=== PATIENT | male | born 1995 | race Asian ===

== ENCOUNTER 2017-02-28 03:59 | Emergency (ER) | payer BC ==
[~2017-02-28] VITALS: Ht 167.6 cm; Wt 87.0 kg
[2017-02-28 04:01] VITALS: BP 160/97; PULSE 82; RESP 16; TEMP 98.3; O2SAT 99
[2017-02-28] MEDS ORDERED: FAMOTIDINE 20 MG/2 ML VIAL IV PUSH ONE (04:15)
[2017-02-28] MEDS ORDERED: SODIUM CHLORIDE 0.9% FLUSH 10 ML FLUSH IV FLUSH PRN (04:15)
[2017-02-28] MEDS ORDERED: methylPREDNISolone SOD SUCC 125 MG/2 ML VIAL IVP ONE (04:15)
[2017-02-28] MEDS ORDERED: EPINEPHrine HCL (1:1000) 1 MG/ML VIAL IM ONE (04:15)
[2017-02-28] MEDS ORDERED: diphenhydrAMINE HCL 50 MG/ML VIAL IVP ONE (04:15)
--- NOTE | 2017-02-28 04:30 | PD ---
HPI Chief Complaint: Allergic/Adverse Reaction Time Seen by Provider: 04:26 Travel History International Travel<30 days: No Contact w/Intl Traveler<30days: No Traveled to known affect area: No History of Present Illness HPI 21-year-old male presents to emergency department with complains of lip swelling and hives this evening. He states that he has had problems with allergic reactions in the past he has plans to see an vaccinator. He states that he had gone to bed this evening but woke up with pruritus and swelling. He comes in for evaluation. He denies headache glossal edema. No shortness of breath or wheezing. No difficulty swallowing. Symptoms are moderate. The patient is concerned that this may worsen presenting him to the ER tonight. The patient cannot recall any causative agent, exposure, change in his environment or new chemicals. PFSH Past Medical History Medical History: Denies Significant Hx Diminished Hearing: No Tetanus Vaccination: < 5 Years Influenza Vaccination: No Past Surgical History Surgical History: No Previous Surgery Social History Alcohol Use: No Tobacco Use: No Substance Use: No Allergies-Medications (Allergen,Severity, Reaction): Coded Allergies: No Known Allergies (Unverified , 02/28/17) Reported Meds & Prescriptions Reported Meds & Active Scripts Active Zantac (Ranitidine HCl) 300 Mg Tab 300 Mg PO DAILY Deltasone (Prednisone) 20 Mg Tab 20 Mg PO TID Epinephrine Inj (Epinephrine) 0.3 Mg/0.3 Ml Pfpen 0.3 Mg IM ONCE PRN Review of Systems Except as stated in HPI: all other systems reviewed are Neg Physical Exam Narrative GENERAL: Well-developed, well-nourished in no apparent distress. Nontoxic appearing. HEAD: Normocephalic, patient has swelling of the left upper lip EYES: Pupils equal round and reactive. Extraocular motions intact. No scleral icterus. No injection or drainage. ENT: Nose clear. Throat without erythema, tonsillar hypertrophy or exudate. Uvula midline. Airway patent. NECK: Trachea midline. Supple, nontender, moves head freely. No central bony tenderness or spasm. CARDIOVASCULAR: Regular rate and rhythm without murmurs, gallops, or rubs. RESPIRATORY: Clear to auscultation. Breath sounds equal bilaterally. No wheezes , rales, or rhonchi. GASTROINTESTINAL: Abdomen soft, non-tender, nondistended. No hepato-splenomegaly , or palpable masses. No guarding. EXTREMITIES: No clubbing, cyanosis, or edema. No joint tenderness. BACK: Nontender without deformity. No flank tenderness. NEUROLOGICAL: Awake, alert and oriented x 3 .Cranial nerves grossly intact. Motor and sensory grossly within normal limits. Normal speech. Skin: There is some swelling of the left upper lip. The patient has scattered patches of hives into plaques. These are predominantly on the trunk but there are several areas on the upper or lower extremities. Data Data Last Documented VS Vital Signs Date Time Temp Pulse Resp B/P Pulse Ox O2 Delivery O2 Flow Rate FiO2 02/28/17 04:06 16 02/28/17 04:01 98.3 82 160/97 99 Room Air Orders Iv Access Insert/Monitor (02/28/17 04:15) Diphenhydramine Inj (Benadryl Inj) (02/28/17 04:15) Methylprednisolone So Succ Inj (Solumedr (02/28/17 04:15) Famotidine Inj (Pepcid Inj) (02/28/17 04:15) Sodium Chloride 0.9% Flush (Ns Flush) (02/28/17 04:15) Epinephrine (1:1000) Inj (Adrenalin (1:1 (02/28/17 04:15) Ondansetron Inj (Zofran Inj) (02/28/17 04:42) Ondansetron Inj (Zofran Inj) (02/28/17 05:00) MDM Medical Decision Making Medical Screen Exam Complete: Yes Emergency Medical Condition: Yes Medical Record Reviewed: Yes Differential Diagnosis Differential diagnosis: Acute allergic reaction, angioedema, contact dermatitis , cellulitis Narrative Course IV access is obtained. Patient's given epinephrine 0.3 mL IM, IV Solu-Medrol 125 mg IV Benadryl 50 mg, IV Pepcid 20 mg, Zofran 4 mg IV. The patient has had significant improvement of his itching and hives. He has had slow improvement of his left upper lip swelling. The patient will be discharged on Zantac, prednisone, Benadryl as well as a EpiPen. This is acute allergic reaction Diagnosis Primary Impression: Acute allergic reaction Qualified Code: T78.40XA - Acute allergic reaction, initial encounter Patient Instructions: General Instructions Additional Instructions: Rest. Medications as directed. 50 mg of Benadryl every 4-6 hours for the next few days. Recheck with a primary care doctor in 3-5 days. Follow-up with your vaccinator as scheduled. Return to the ER if any problems. Med/Other Pt SpecificInfo: Prescription(s) given Scripts Ranitidine (Zantac)300 Mg [id number] Mg PO DAILY #10 TAB Prov:Azul Henderson MD 02/28/17 Prednisone (Deltasone)20 Mg Tab20 Mg PO TID #15 TAB Prov:Azul Henderson MD 02/28/17 Epinephrine Inj 0.3 Mg/0.3 Ml Pfpen0.3 Mg IM ONCE PRN (ALLERGIC REACTION) #1 PEN Ref 0 Prov:Azul Henderson MD 02/28/17 Disposition: 01 DISCHARGE HOME Condition: Stable George Wadsworth Feb 28, 2017 04:30
[2017-02-28] MEDS ORDERED: ONDANSETRON HCL 4 MG/2 ML VIAL ONE (04:42)
[2017-02-28 05:00] VITALS: BP 158/86; PULSE 114; RESP 16; O2SAT 99
[2017-02-28] MEDS ORDERED: ONDANSETRON HCL 4 MG/2 ML VIAL IV PUSH ONE (05:00)
[2017-02-28] MEDS ORDERED: ZANT300T PO (05:02)
[2017-02-28] MEDS ORDERED: EPIN1INJ17 IM (05:02)
[2017-02-28] MEDS ORDERED: PRED-503 PO (05:02)
== END 2017-02-28 06:26 | disposition home or self-care (01) ==
LOC: NEPK 03:59
DX: T78.40XA Allergy, unspecified, initial encounter (principal); L50.9 Urticaria, unspecified
CPT/HCPCS: 96372; 96374; 96375; 99283; J0171; J1200; J2405; J2930

== ENCOUNTER 2017-03-08 01:00 | Emergency (ER) | payer BC ==
[~2017-03-08] VITALS: Ht 170.2 cm; Wt 84.0 kg
[~2017-03-08 01:00] MED LIST: EPIN1INJ17 IM; PRED-503 PO; ZANT300T PO
[2017-03-08 01:02] VITALS: BP 164/101; PULSE 115; RESP 16; TEMP 100.1; O2SAT 98
[2017-03-08 01:19] VITALS: O2SAT 100
--- NOTE | 2017-03-08 01:26 | PD ---
HPI Chief Complaint: Allergic/Adverse Reaction Time Seen by Provider: 01:11 Travel History International Travel<30 days: No Contact w/Intl Traveler<30days: No Traveled to known affect area: No History of Present Illness HPI 41-year-old male complains of itching rash on the arms and chest and throat tightness. Patient states the symptoms started about several hours prior coming to the emergency room. Patient was seen in emergency room 8 days ago for allergic reaction. Patient has history of recurrent allergic reaction in the past. Patient was given steroid, Benadryl, epinephrine and Pepcid with good results. Patient was discharged home with prescription for Zantac, EpiPen , prednisone and Benadryl. Patient states that he has been doing well until this evening when the symptoms started again. Patient denies any chest pain or shortness of breath. PFSH Past Medical History Medical History: Denies Significant Hx Diminished Hearing: No Past Surgical History Surgical History: No Previous Surgery Social History Alcohol Use: No Tobacco Use: No Substance Use: No Allergies-Medications (Allergen,Severity, Reaction): Coded Allergies: No Known Allergies (Unverified , 03/08/17) Reported Meds & Prescriptions Reported Meds & Active Scripts Active Zantac (Ranitidine HCl) 300 Mg Tab 300 Mg PO DAILY Deltasone (Prednisone) 20 Mg Tab 20 Mg PO TID Epinephrine Inj (Epinephrine) 0.3 Mg/0.3 Ml Pfpen 0.3 Mg IM ONCE PRN Review of Systems General / Constitutional: No: Fever Eyes: No: Visual changes HENT: No: Headaches Cardiovascular: No: Chest Pain or Discomfort Respiratory: No: Shortness of Breath Gastrointestinal: No: Abdominal Pain Genitourinary: No: Dysuria Musculoskeletal: No: Pain Skin: Positive Rash, Positive Itching Neurologic: No: Weakness Psychiatric: No: Depression Endocrine: No: Polydipsia Hematologic/Lymphatic: No: Easy Bruising Physical Exam Narrative GENERAL: Well-nourished, well-developed patient. SKIN: Focused skin assessment warm/dry. HEAD: Normocephalic. EYES: No scleral icterus. No injection or drainage. Throat examination reveals no edema of the throat. NECK: Supple, trachea midline. No JVD or lymphadenopathy. CARDIOVASCULAR: Regular rate and rhythm without murmurs, gallops, or rubs. RESPIRATORY: Breath sounds equal bilaterally. No accessory muscle use. No stridor or wheezes. GASTROINTESTINAL: Abdomen soft, non-tender, nondistended. MUSCULOSKELETAL: No cyanosis, or edema. BACK: Nontender without obvious deformity. No CVA tenderness. Patient has hives over the upper chest above back and upper extremity. Data Data Last Documented VS Vital Signs Date Time Temp Pulse Resp B/P Pulse Ox O2 Delivery O2 Flow Rate FiO2 03/08/17 01:19 100 Room Air 03/08/17 01:02 100.1 115 16 164/101 Orders Ecg Monitoring (03/08/17 01:16) Iv Access Insert/Monitor (03/08/17 01:16) Oximetry (03/08/17 01:16) Diphenhydramine Inj (Benadryl Inj) (03/08/17 01:30) Methylprednisolone So Succ Inj (Solumedr (03/08/17 01:30) Famotidine Inj (Pepcid Inj) (03/08/17 01:30) Sodium Chloride 0.9% Flush (Ns Flush) (03/08/17 01:30) Epinephrine (1:1000) Inj (Adrenalin (1:1 (03/08/17 01:30) Ondansetron Inj (Zofran Inj) (03/08/17 01:30) MDM Medical Decision Making Medical Screen Exam Complete: Yes Emergency Medical Condition: Yes Differential Diagnosis Differential diagnosis including allergic reaction , anaphylactoid reaction Narrative Course 21-year-old male with itching hives over the arms and chest and upper back. Patient also complained of pain into the throat. Patient has history of recurrent allergic reaction. Epinephrine 0.3 mg IM. Solu-Medrol 125 g IV. Benadryl 50 mg IV. Pepcid 20 mg IV. Diagnosis Primary Impression: Acute allergic reaction Qualified Code: T78.40XA - Acute allergic reaction, initial encounter Patient Instructions: General Instructions Additional Instructions: Take medications as directed. 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 Return if worse. Med/Other Pt SpecificInfo: Prescription(s) given Scripts Cetirizine (Zyrtec Allergy)10 Mg Cap10 Mg PO DAILY #10 CAP Ref 0 Prov:Elie Borja MD 03/08/17 Prednisone 20 Mg Tab20 Mg PO BID #10 TAB Ref 0 Prov:Elie Borja MD 03/08/17 Ranitidine (Zantac)300 Mg [id number] Mg PO DAILY #10 TAB Ref 0 Prov:Elie Borja MD 03/08/17 Disposition: 01 DISCHARGE HOME Condition: Stable Elie Borja MD Mar 08, 2017 01:25
[2017-03-08] MEDS ORDERED: ONDANSETRON HCL 4 MG/2 ML VIAL IV PUSH ONE (01:30)
[2017-03-08] MEDS ORDERED: FAMOTIDINE 20 MG/2 ML VIAL IV PUSH ONE (01:30)
[2017-03-08] MEDS ORDERED: methylPREDNISolone SOD SUCC 125 MG/2 ML VIAL IVP ONE (01:30)
[2017-03-08] MEDS ORDERED: SODIUM CHLORIDE 0.9% FLUSH 10 ML FLUSH IV FLUSH PRN (01:30)
[2017-03-08] MEDS ORDERED: EPINEPHrine HCL (1:1000) 1 MG/ML VIAL IM ONE (01:30)
[2017-03-08] MEDS ORDERED: diphenhydrAMINE HCL 50 MG/ML VIAL IVP ONE (01:30)
[2017-03-08] MEDS ORDERED: ZANT300T PO (02:26)
[2017-03-08] MEDS ORDERED: PRED20 PO (02:26)
[2017-03-08] MEDS ORDERED: ZYRT10CA PO (02:26)
== END 2017-03-08 02:37 | disposition home or self-care (01) ==
LOC: NEPE 01:00
DX: T78.40XA Allergy, unspecified, initial encounter (principal); X58.XXXA Exposure to other specified factors, initial encounter
CPT/HCPCS: 96372; 96374; 96375; 99283; J0171; J1200; J2405; J2930